=== PATIENT | male | born 1960 | race Caucasian/White ===

== ENCOUNTER 2017-09-05 12:43 | Emergency (ER) | payer OTHER ==
[~2017-09-05] VITALS: Ht 185.4 cm; Wt 116.4 kg
[2017-09-05] MEDS ORDERED: TRAMADOL HCL50 MG PO (14:39)
[2017-09-05] MEDS ORDERED: NAPROSYN500 MG PO (14:39)
[2017-09-05 15:22] VITALS: BP 150/87
== END 2017-09-05 15:10 | disposition home or self-care (01) ==
LOC: EME 12:43
PROC: 3E0234Z Introduction of Serum, Toxoid and Vaccine into Muscle, Percutaneous Approach (ICD-10-PCS; principal; 2017-09-05)
DX: S83.92XA Sprain of unspecified site of left knee, initial encounter (principal); S80.812A Abrasion, left lower leg, initial encounter; W20.8XXA Other cause of strike by thrown, projected or falling object, initial encounter; Y93.H9 Activity, other involving exterior property and land maintenance, building and construction; Z23 Encounter for immunization
CPT/HCPCS: 73564; 99281; 99284